=== PATIENT | female | born 1955 | race Caucasian/White ===

== ENCOUNTER 2019-01-09 13:22 | Emergency (ER) | payer OTHER, MEDICARE, SELFPAY ==
[2019-01-09 13:23] VITALS: BP 144/85; PULSE 77; RESP 17; TEMP 36.6; O2SAT 99; BMI 28.3
[2019-01-09] MEDS: Morphine 2 MG/ML Syringe IV (15:08)
[2019-01-09] MEDS: 0.9% Normal Saline 1,000 ML 150 ML IV (15:08)
[2019-01-09] MEDS: Ondansetron 4 MG/2 ML Vial IV (15:08)
[2019-01-09 15:14] LABS: Absolute Lymphocyte Count 2.28 X10^3/ul (0.83-4.51); Absolute Neutrophil Count 4.2 X10^3/uL (2.0-7.7); Basophil# 0.04 X10^3/uL; Basophil% 0.6 % (0-1); Eosinophil# 0.06 X10^3/uL; Eosinophils% 0.9 % (0-5); Hematocrit 41.7 % (37-47); Hemoglobin 13.9 g/dl (12.0-15.0); Lymphocyte # 2.28 X10^3/ul (4.0); Lymphocyte % 32.4 % (19-41); Mean Corp Hgb Conc 33.3 g/gl (32-36); Mean Corpuscular Hgb 30.4 pg (27.0-32.0); Mean Corpuscular Volume 91.2 fL (81-99); Mean Platelet Vol. 9.9 fl (6.2-12.0); Monocyte# 0.41 X10^3/uL; Monocyte% 5.8 % (0-10); Neutrophil # 4.24 X10^3/uL (2.7-7.7); Neutrophil % 60.3 % (47-70); Platelet Count 268 K/mm3 (150-450); RBC Distribution Width CV 13.2 % (11.6-14.6); RBC Distribution Width SD 43.7 fl (35.1-43.9); Red Blood Count 4.57 M/mm3 (4.2-5.4)
[2019-01-09 15:15] LABS: POSITIVE COUNT NO; POSITIVE DIFFERENTIAL NO; POSITIVE MORPHOLOGY NO
[2019-01-09 15:27] LABS: BUN 17 mg/dL (7-18); Creatinine, Serum 0.93 mg/dL (0.55-1.02); Estimated Creatinine Clearance 62.07 ml/min; Glucose 104 mg/dL (74-106)
[2019-01-09 15:28] LABS: Anion Gap 5 (5-15); BUN/Creat Ratio 18.2 RATIO (10-20); Calcium,Total 8.5 mg/dL (8.5-10.1); Chloride 106 mmol/L (98-107); EST Glomerular Filtration Rate 64 mL/min (>60); Est Glom Filt Rate - Afr Amer 78 mL/min (>60); Potassium 4.2 mmol/L (3.5-5.1); Sodium Level 138 mmol/L (136-145)
--- NOTE | 2019-01-09 15:41 | CT_ITS ---
STUDY: CT CERVICAL SPINE WITH CONTRAST REASON FOR EXAM: Female, 63 years old. Pain and stiffness RADIATION DOSAGE (If Supplied By Facility): CTDIvol = ( 13.41 ) mGy, DLP = ( 267.11 ) mGycm TECHNIQUE: High resolution transaxial imaging was performed following intravenous administration of 100ML IV Isovue 300. Sagittal and coronal images were reconstructed. Individualized dose optimization techniques were used for this CT. COMPARISON: None FINDINGS: There is anterior fusion of C4-C6. Normal craniovertebral junction. Normal anterior atlantoaxial articulation. Normal odontoid process. Normal cervical lordosis. Normal vertebral bodies and posterior osseous elements. C2-3: Normal endplates. Normal disc height and morphology. Normal central canal and intervertebral neuroforamina. C3-4: Normal endplates. Normal disc height and morphology. Normal central canal and intervertebral neuroforamina. C4-5: Normal endplates. Normal disc height and morphology. Normal central canal and intervertebral neuroforamina. C5-6: Normal endplates. Normal disc height and morphology. Normal central canal and intervertebral neuroforamina. C6-7: Normal endplates. Normal disc height and morphology. Normal central canal and intervertebral neuroforamina. C7-T1: Normal endplates. Normal disc height and morphology. Normal central canal and intervertebral neuroforamina. Normal visualized soft tissue structures. CT/Spine Cervical WITH Contrast IMPRESSION: No fracture or subluxation. Anterior fusion C4-C6. Electronically Signed: Betsy Li, at 16:42 EDT Tel , Service support ,
[2019-01-09 16:37] VITALS: BP 135/74; O2SAT 97
--- NOTE | 2019-01-09 16:56 | ED.VISSUMM ---
- ER Visit Summary Date of Service: 01/09/19 Chief Complaint: Neck pain History of Present Illness: The patient is a 63 F with a history of chronic neck pain. She had surgery in 2005. She is been following with a neuro doctor that does epidural injections in her neck. She had her most recent epidural injection on the . She continues to have significant neck pain and tightness. She has difficulty turning her head side to side. She is taking tizanidine for spasm and Neurontin. She believes her doctor is writing her prescription for tramadol. Patient continues to have significant tightness in her neck and has difficulty turning her head side to side. She reportedly had multiple near falls at home. She has not noted fever or chills. She has no pain at the recent injection site for her epidural shot. Physical Examination: Vital signs unremarkable. Patient sitting upright in bed. She turns her shoulders when trying to turn side to side. Head neck examination reveals tenderness in the bilateral cervical paraspinals and trapezius muscles. No significant midline tenderness. There is no skin erythema or warmth. Heart is regular rate and rhythm. Lung sounds are clear. Neuro exam is unremarkable. Test Results: CBC and chemistry studies normal. CT of the C-spine with contrast shows no evidence of fracture or subluxation. Anterior fusion of C4 through C6 is noted. Emergency Department Course and Treatment: She was given 2 mg of morphine along with Zofran. On repeat evaluation she does have improved movement in her neck. Images were reviewed with her as she was convinced that 1 of the screws had fallen into her neck area. There is no evidence of acute infection from her recent injection. She will be given a short course of [place] for breakthrough pain that she can use in place of tramadol. Treatment Plan: [] Disposition: Discharge Impression: Acute on chronic neck pain This note was generated with [employer] dictation software. It may contain incorrect words, spelling, and punctuation that were not noted in review of the chart prior to signing ED Disposition - Plan for ED Patient: Referrals: Tiera Villalpando, PAUL-C [Primary Care Provider] -
--- NOTE | 2019-01-09 17:00 | ED.DEP ---
ED Disposition - Plan for ED Patient: Disposition: Home or Assisted Living Instructions: ED Neck Pain No Trauma, ED Spasm Muscle Prescriptions: Hydrocodone Bitart/Apap 5-325 [[place] 5MG-325MG] 1 tablet PO Q6H PRN PRN 3 Days #10 tablet PRN Reason: Pain Referrals: Tiera Villalpando, [employer] [Primary Care Provider] - 1 Week if not improving
--- NOTE | 2019-01-09 17:02 | DCINST.ED_ITS ---
ED Disposition - Plan for ED Patient: Disposition: Home or Assisted Living Instructions: ED Neck Pain No Trauma, ED Spasm Muscle Prescriptions: Hydrocodone Bitart/Apap 5-325 [[place] 5MG-325MG] 1 tablet PO Q6H PRN PRN 3 Days #10 tablet PRN Reason: Pain Referrals: Tiera Villalpando, [employer]-C [Primary Care Provider] - 1 Week if not improving
[2019-01-09 17:07] VITALS: BP 115/79; O2SAT 95
== END 2019-01-09 17:21 | disposition home or self-care (01) ==
PROVIDERS: Emergency Provider Emergency Medicine; Family Provider Nurse Practitioner Family; PCP Nurse Practitioner Family
DX: M54.2 Cervicalgia (principal); G89.29 Other chronic pain; R29.6 Repeated falls
CPT/HCPCS: 72126; 80048; 85025; 96361; 96374; 96375; 99283; J7030; Q9967; A4216; J2405

== ENCOUNTER → 2019-01-29 07:46 | Outpatient (CLI) | payer MEDICARE, SELFPAY ==
[2019-01-09 13:23] VITALS: BMI 28.3
== END ==
PROVIDERS: Family Provider Nurse Practitioner Family; PCP Nurse Practitioner Family; Referring Provider Nurse Practitioner Family; Visit Provider Nurse Practitioner Family
DX: R94.7 Abnormal results of other endocrine function studies (principal)
CPT/HCPCS: 36415; 82533